=== PATIENT | female | born 1970 | race Caucasian/White ===

== ENCOUNTER 2019-08-24 09:47 | Emergency (ER) | payer OTHER ==
[~2019-08-24] VITALS: Ht 157.5 cm; Wt 56.7 kg
[2019-08-24 09:50] VITALS: BP 147/129
--- NOTE | 2019-08-24 10:12 | NUR ---
PT SEEN AND EXMAINED BY .
--- NOTE | 2019-08-24 10:54 | NUR ---
Patient discharged to home in stable condition. Written and verbal after care instructions given. Patient verbalizes understanding of instruction.
== END 2019-08-24 10:56 | disposition home or self-care (01) ==
LOC: ER 09:47
DX: S00.81XA Abrasion of other part of head, initial encounter (principal); L03.211 Cellulitis of face; I10 Essential (primary) hypertension; Z88.0 Allergy status to penicillin; W54.0XXA Bitten by dog, initial encounter; Y93.89 Activity, other specified; Y92.89 Other specified places as the place of occurrence of the external cause; Y99.8 Other external cause status